=== PATIENT | female | born 1970 | race Two or more races ===

== ENCOUNTER 2017-12-28 14:18 | Emergency (ER) | payer SELFPAY ==
[2017-12-28] MEDS ORDERED: ONDANSETRON HCL INJ/PF 4 MG/2 ML SDV IV ONE (14:57)
[2017-12-28] MEDS ORDERED: FENTANYL CITRATE INJ/PF 100 MCG/2 ML AMPUL IV ONE (14:57)
[2017-12-28] MEDS ORDERED: NORMAL SALINE 1000 ML 1,000 ML IV ONE (14:57)
[2017-12-28] MEDS ORDERED: KETOROLAC TROMETHAMINE INJ/PF 30 MG/1 ML SDV IV ONE (14:57)
--- NOTE | 2017-12-28 15:00 | ER Document Report ---
ED Medical Screen (RME) - General Chief Complaint: Abdominal Pain Stated Complaint: ABDOMINAL PAIN Time Seen by Provider: 12/28/17 14:56 Notes: 47 years old female with a history of pancreatitis, gastric bypass surgery, polyp, presents today with diffuse midline abdominal pain radiating to the back. For the last 2 days. Denies any fever chills. Nauseous no vomiting. Denies any diarrhea. Midline abdominal tenderness noted. TRAVEL OUTSIDE OF THE [place] IN LAST 30 DAYS: No - Related Data Allergies/Adverse Reactions: No Known Allergies Allergy (Unverified 12/28/17 14:23) Past Medical History Renal/ Medical History: Denies: Hx Peritoneal Dialysis Past Surgical History: Reports: Hx Cholecystectomy, Hx Tubal Ligation Physical Exam - Vital signs Vitals: Temp Pulse Resp BP Pulse Ox 98.6 F 94 16 112/65 97 12/28/17 14:43 12/28/17 14:43 12/28/17 14:43 12/28/17 14:43 12/28/17 14:43 Course - Vital Signs Vital signs: Temp Pulse Resp BP Pulse Ox 98.6 F 94 16 112/65 97 12/28/17 14:43 12/28/17 14:43 12/28/17 14:43 12/28/17 14:43 12/28/17 14:43
[2017-12-28 15:42] LABS: ABSOLUTE BASOPHILS # (AUTO) 0.1 10^3/uL (0.0-0.2); ABSOLUTE EOSINOPHILS # (AUTO) 0.1 10^3/uL (0.0-0.6); ABSOLUTE LYMPHOCYTES (AUTO) 1.8 10^3/uL (0.5-4.7); ABSOLUTE MONOCYTES (AUTO) 0.3 10^3/uL (0.1-1.4); ABSOLUTE NEUT (AUTO) 2.7 10^3/uL (1.7-8.2); BASOPHILS % (AUTO) 2.2 % (0-2); EOSINOPHILS % (AUTO) 1.6 % (0-6); HEMATOCRIT 33.1 % (36.0-47.0); HEMOGLOBIN 10.3 g/dL (12.0-15.5); LYMPHOCYTES % (AUTO) 35.7 % (13-45); MEAN CORPUSCULAR HGB CONC 31.2 g/dL (32.0-36.0); MEAN CORPUSCULAR VOLUME 67 fl (80-97); MONOCYTES % (AUTO) 6.4 % (3-13); PLATELET COUNT 417 10^3/uL (150-450); RED BLOOD COUNT 4.91 10^6/uL (3.72-5.28); RED CELL DISTRIBUTION WIDTH 20.8 % (11.5-14.0); SEGMENTED NEUTROPHILS % (AUTO) 54.1 % (42-78); TOTAL CELLS COUNTED % (AUTO) 100 %
[2017-12-28 15:48] LABS: APPEARANCE,URINE SLIGHTLY-CLOUDY; BILIRUBIN,URINE NEGATIVE (NEGATIVE); COLOR,URINE YELLOW; GLUCOSE, URINE NEGATIVE (NEGATIVE); KETONES,URINE TRACE mg/dL (NEGATIVE); LEUKOCYTE ESTERASE,URINE TRACE (NEGATIVE); NITRITE,URINE NEGATIVE (NEGATIVE); PROTEIN,URINE NEGATIVE (NEGATIVE); URINE SPECIFIC GRAVITY 1.025
[2017-12-28 16:02] LABS: ALANINE AMINOTRANSFERASE 24 U/L (9-52); ALBUMIN 4.4 g/dL (3.5-5.0); ALKALINE PHOSPHATASE 91 U/L (38-126); ANION GAP 8 (5-19); ASPARTATE AMINO TRANSFERASE 34 U/L (14-36); BILIRUBIN,DIRECT 0.3 mg/dL (0.0-0.4); BILIRUBIN,TOTAL 0.5 mg/dL (0.2-1.3); BLOOD UREA NITROGEN 10 mg/dL (7-20); CALCIUM 9.5 mg/dL (8.4-10.2); CARBON DIOXIDE 28 mmol/L (22-30); CHLORIDE 107 mmol/L (98-107); GLUCOSE 79 mg/dL (75-110); LIPASE 244.7 U/L (23-300); POTASSIUM 4.6 mmol/L (3.6-5.0); TOTAL PROTEIN 7.8 g/dL (6.3-8.2)
[2017-12-28 16:09] LABS: URINE AMPHETAMINES SCREEN NEGATIVE; URINE BARBITURATES SCREEN NEGATIVE; URINE BENZODIAZEPINES SCREEN NEGATIVE; URINE COCAINE SCREEN NEGATIVE; URINE MARIJUANA (THC) SCREEN NEGATIVE; URINE METHADONE SCREEN NEGATIVE; URINE PHENCYCLIDINE SCREEN NEGATIVE
--- NOTE | 2017-12-28 16:10 | ER Document Report ---
ED General - General Chief Complaint: Abdominal Pain Stated Complaint: ABDOMINAL PAIN Time Seen by Provider: 12/28/17 14:56 TRAVEL OUTSIDE OF THE [place] IN LAST 30 DAYS: No - HPI Notes: Patient is a 47-year-old female with a history of gastric bypass, previous pancreatitis who presents to the ED complaining of epigastric abdominal pain that radiates into her back with associated nausea and vomiting 3 days. Patient states that p.o. intake does increase her symptoms. Patient states that her symptoms do mimic that of pancreatitis in the past. Patient reports having to be in the hospital for 4 days for pancreatitis previously. Her last episode of vomiting was a couple hours ago. No hematemesis. Patient states that she is urinating normally and having normal bowel movements. She has had a cholecystectomy in the past as well. Patient states that she does not drink alcohol anymore since her last bout of pancreatitis. She denies any IV drug use. No other significant past medical history. Denies any drug allergies. Denies any headache, fever, URI, sore throat, chest pain, palpitations, syncope , cough, shortness of breath, wheeze, dyspnea, diarrhea, urinary retention, dysuria, hematuria, loss of control of bowel or bladder, numbness/tingling, saddle anesthesia, muscle paralysis/weakness, or rash. - Related Data Allergies/Adverse Reactions: No Known Allergies Allergy (Unverified 12/28/17 14:23) Past Medical History - Social History Smoking Status: Former Smoker Family History: Reviewed & Not Pertinent Patient has suicidal ideation: No Patient has homicidal ideation: No Renal/ Medical History: Denies: Hx Peritoneal Dialysis Past Surgical History: Reports: Hx Cholecystectomy, Hx Tubal Ligation Review of Systems - Review of Systems -: Yes All other systems reviewed and negative Physical Exam - Vital signs Vitals: Temp Pulse Resp BP Pulse Ox 98.6 F 94 16 112/65 97 12/28/17 14:43 12/28/17 14:43 12/28/17 14:43 12/28/17 14:43 12/28/17 14:43 - Notes Notes: PHYSICAL EXAMINATION: GENERAL: Well-appearing, well-nourished and in no acute distress. A&Ox4. Answers questions appropriately. HEAD: Atraumatic, normocephalic. EYES: Pupils equal round and reactive to light, extraocular movements intact, sclera anicteric, conjunctiva are normal. ENT: Nares patent and without discharge. oropharynx clear without exudates. No tonsilar hypertrophy or erythema. Moist mucous membranes. NECK: Normal range of motion, supple without lymphadenopathy LUNGS: Breath sounds clear to auscultation bilaterally and equal. No wheezes rales or rhonchi. HEART: Regular rate and rhythm without murmurs, rubs, gallops. ABDOMEN: Soft, nondistended abdomen. No guarding, no rebound. + epigastric tenderness, correlates with pain described. Normal bowel sounds present. No CVA tenderness bilaterally. Musculoskeletal: FROM to passive/active. Strength 5+/5. Extremities: No cyanosis, clubbing, or edema b/l. Peripheral pulses 2+. Capillary refill less than 3 seconds. NEUROLOGICAL: Normal speech, normal gait. PSYCH: Normal mood, normal affect. SKIN: Warm, Dry, normal turgor, no rashes or lesions noted. Course - Re-evaluation Re-evalutation: 12/28/17 18:58 Patient is an afebrile, well-hydrated, 47-year-old female who presents to the ED with epigastric abdominal pain. Vitals are acceptable without any significant tachycardia, tachypnea, or hypoxia. PE is otherwise unremarkable aside from reproducible palpable tenderness to the epigastrium. Patient's tenderness to her abdomen has improved. CBC, CMP, lipase, urinalysis, urine drug screen are unremarkable for any acute pathology. CT scan of the abdomen pelvis was unremarkable for any acute pathology as well was ordered at triage. Patient is tolerating p.o. without any difficulties and is nontoxic-appearing. GI cocktail resolved epigastric symptoms. Patient received fluids and IV medication throughout her stay. No other labs or imaging warranted at this time based on H&P. Low suspicion/risk for acute appendicitis, bowel obstruction , acute cholecystitis, acute cholangitis, perforated diverticulitis, incarcerated hernia, pancreatitis, perforated ulcer, peritonitis, sepsis, pelvic inflammatory disease, ectopic , tubo-ovarian abscess, ovarian torsion, or other systemic emergent condition at this time. Patient is aware that her condition can change from initial presentation and she needs to monitor symptoms closely and seek medical attention if any acute changes. I will send her home with a prescription for Carafate, Zofran, and omeprazole. Conservative measures otherwise for symptoms. Recheck with your PCM in 2-3 days. Schedule an appointment with a hydrostatic tubing tester. Return to the ED with any worsening/concerning symptoms otherwise as reviewed in discharge. Patient is in agreement. - Vital Signs Vital signs: Temp Pulse Resp BP Pulse Ox 98.6 F 94 16 112/65 97 12/28/17 14:43 12/28/17 14:43 12/28/17 14:43 12/28/17 14:43 12/28/17 14:43 - Laboratory Result Diagrams: 12/28/17 15:30 12/28/17 15:30 Laboratory results interpreted by me: 12/28/17 12/28/17 12/28/17 15:30 15:30 15:30 Hgb 10.3 L Hct 33.1 L MCV 67 L MCH 21.0 L MCHC 31.2 L RDW 20.8 H Basophils % 2.2 H Creatinine 0.51 L Urine Ketones TRACE H Urine Urobilinogen 4.0 H Ur Leukocyte Esterase TRACE H Urine Ascorbic Acid 20 H Discharge - Discharge Clinical Impression: Epigastric abdominal pain Condition: Stable Disposition: HOME, SELF-CARE Instructions: Abdominal Pain ([facility]), Antinausea Medication ([facility]) Additional Instructions: Maintain adequate fluid and food intake [place] diet ([employer] Bananas, rice, apples, toast, etc Zofran as needed tylenol if needed Monitor for any worsening symptoms Make sure you are staying hydrated enough to urinate and have normal BM's Recheck with your PCM in 2-3 days Schedule an appointment with gastroenterology for further evaluation and management Return to the ED with any worsening symptoms and/or development of fever, headache, chest pain, palpitations, syncope, shortness of breath, trouble breathing, abdominal pain, n/v/d, blood in stool/urine, weakness, or other worsening symptoms that are concerning to you. Prescriptions: Omeprazole 20 mg PO DAILY #30 tablet. Ondansetron [Zofran Odt 4 mg Tablet] 1 - 2 tab PO Q4H PRN #15 tab.rapdis PRN Reason: For Nausea/Vomiting Sucralfate [Carafate] 1 gm PO QID PRN #420 ml PRN Reason: Referrals: [facility] [Provider Group] - Follow up as needed
[2017-12-28] MEDS ORDERED: METOCLOPRAMIDE HCL ORAL SOLN 10 MG/10 ML UDCUP PO ONE (18:18)
[2017-12-28] MEDS ORDERED: LIDOCAINE 2% VISCOUS SOLN 20 ML UDCUP PO ONE (18:18)
[2017-12-28] MEDS ORDERED: MAG HYDROX/AL HYDROX/SIMETH SUSP 30 ML UDCUP PO ONE (18:18)
--- NOTE | 2017-12-28 18:30 | RADIOLOGY REPORT (SQ) ---
EXAM DESCRIPTION: CT ABD/PELVIS WITH IV ONLY COMPLETED DATE/TIME: 12/28/2017 6:06 pm REASON FOR STUDY: Pancreatitis COMPARISON: None. TECHNIQUE: CT scan of the abdomen and pelvis performed using helical scanning technique with dynamic intravenous contrast injection. No oral contrast. Images reviewed with lung, soft tissue, and bone windows. Reconstructed coronal and sagittal MPR images reviewed. Delayed images for evaluation of the urinary system also acquired. All images stored on PACS. All CT scanners at this facility use dose modulation, iterative reconstruction, and/or weight based d osing when appropriate to reduce radiation dose to as low as reasonably achievable (ALARA). [facility]: Dose Right [facility]: CareDose [facility]: Dose Right [facility]: Teradose 4D [facility]: Cardiosolutions CONTRAST TYPE AND DOSE: contrast/concentration: Isovue 350.00 mg/ml; Total Contrast Delivered: 92.0 ml; Total Saline Delivered: 45.0 ml RENAL FUNCTION: BUN 10 creatinine 0.5 RADIATION DOSE: CT Rad equipment meets quality standard of care and radiation dose reduction techniq ues were employed. CTDIvol: 16.2 - 19.0 mGy. DLP: 3137 mGy-cm.. LIMITATIONS: None. FINDINGS: LOWER CHEST: No significant findings. No nodules or infiltrates. LIVER: Normal size. No masses. No dilated ducts. SPLEEN: Normal size. No focal lesions. PANCREAS: No masses. No significant calcifications. No adjacent inflammation or peripancreatic fluid collections. Pancreatic duct not dilated. GALLBLADDER: Surgically absent. ADRENAL GLANDS: No significant masses or asymmetry. RIGHT KIDNEY AND URETER: No solid masses. No significant calcifications. No hydronephrosis or hyd roureter. LEFT KIDNEY AND URETER: No solid masses. No significant calcifications. No hydronephrosis or hydr oureter. AORTA AND VESSELS: No aneurysm. No dissection. Renal arteries, SMA, celiac without stenosis. RETROPERITONEUM: No retroperitoneal adenopathy, hemorrhage or masses. BOWEL AND PERITONEAL CAVITY: No masses or inflammatory changes. No free fluid or peritoneal masses. APPENDIX: Normal. PELVIS: No mass. No free fluid. Normal bladder. ABDOMINAL WALL: No masses. No hernias. BONES: Unilateral spondylolysis on the left at L4. OTHER: No other significant finding. IMPRESSION: 1. No acute findings in the abdomen or pelvis. There is no evidence of acute pancreatit is. 2. Unilateral spondylolysis at L4 on the left. TECHNICAL DOCUMENTATION: JOB ID: [id number] Quality ID # [id number]: Final reports with documentation of one or more dose reduction techniques (e.g., Au tomated exposure control, adjustment of the mA and/or kV according to patient size, use of iterative reconstruction technique) 2010 [employer] All Rights Reserved Reading location - IP/workstation name: [email or web address]
[2017-12-28 19:03] VITALS: BP 117/71
== END 2017-12-28 19:07 | disposition home or self-care (01) ==
LOC: ER 14:18
DX: R10.13 Epigastric pain (principal); R11.2 Nausea with vomiting, unspecified; Z98.84 Bariatric surgery status; Z90.49 Acquired absence of other specified parts of digestive tract; Z87.891 Personal history of nicotine dependence
CPT/HCPCS: 99284; 96361; 96374; 96375; 36415; 83690; 85025; 81025; 80053; 81001; 80307; 74177; J3010; J3490; J1885; J2405; J7030

== ENCOUNTER 2018-06-11 21:27 | Emergency (ER) | payer OTHER ==
[2018-06-11] MEDS ORDERED: MORPHINE SULFATE 10 MG/ML INJ IV ONE (22:03)
[2018-06-11] MEDS ORDERED: NORMAL SALINE 1000 ML 1,000 ML IV ONE (22:03)
[2018-06-11] MEDS ORDERED: ONDANSETRON HCL INJ/PF 4 MG/2 ML SDV IV ONE (22:03)
--- NOTE | 2018-06-11 22:06 | ER Document Report ---
ED Medical Screen (RME) - General Chief Complaint: Abdominal Pain Stated Complaint: HEADACHE Time Seen by Provider: 06/11/18 22:03 Notes: 48-year-old female with a history of both pancreatitis and gastric bypass comes to the emergency department for chief complaint of upper abdominal pain, worse on the left, radiates around to her back. Symptoms started 3 days ago, have worsened, she vomited 3 times a day, she also has developed a headache as well. Denies fever. Denies alcohol, states she used to with previous pancreatitis. Has had a cholecystectomy. TRAVEL OUTSIDE OF THE [place] IN LAST 30 DAYS: No - Related Data Allergies/Adverse Reactions: No Known Allergies Allergy (Unverified 12/28/17 14:23) Past Medical History Renal/ Medical History: Denies: Hx Peritoneal Dialysis Past Surgical History: Reports: Hx Cholecystectomy, Hx Tubal Ligation Physical Exam - Vital signs Vitals: Temp Pulse Resp BP Pulse Ox 98.1 F 90 17 128/85 H 100 06/11/18 22:02 06/11/18 22:02 06/11/18 22:02 06/11/18 22:02 06/11/18 22:02 - General General appearance: Anxious In distress: Mild - Appears to be in pain but not in severe distress - Abdominal Tenderness: Tender - Tender in the epigastric and general upper abdomen especially on the left Course - Re-evaluation Re-evalutation: I have greeted and performed a rapid initial assessment of this patient. A comprehensive ED assessment and evaluation of the patient, analysis of test results and completion of the medical decision making process will be conducted by additional ED providers. - Vital Signs Vital signs: Temp Pulse Resp BP Pulse Ox 98.1 F 90 17 128/85 H 100 06/11/18 22:02 06/11/18 22:02 06/11/18 22:02 06/11/18 22:02 06/11/18 22:02
[2018-06-11 23:00] LABS: ABSOLUTE BASOPHILS # (AUTO) 0.1 10^3/uL (0.0-0.2); ABSOLUTE EOSINOPHILS # (AUTO) 0.1 10^3/uL (0.0-0.6); ABSOLUTE LYMPHOCYTES (AUTO) 1.6 10^3/uL (0.5-4.7); ABSOLUTE MONOCYTES (AUTO) 0.4 10^3/uL (0.1-1.4); ABSOLUTE NEUT (AUTO) 2.4 10^3/uL (1.7-8.2); BASOPHILS % (AUTO) 1.2 % (0-2); EOSINOPHILS % (AUTO) 2.7 % (0-6); HEMATOCRIT 32.6 % (36.0-47.0); HEMOGLOBIN 10.2 g/dL (12.0-15.5); LYMPHOCYTES % (AUTO) 35.8 % (13-45); MEAN CORPUSCULAR HEMOGLOBIN 22.1 pg (27.0-33.4); MEAN CORPUSCULAR HGB CONC 31.4 g/dL (32.0-36.0); MEAN CORPUSCULAR VOLUME 70 fl (80-97); MONOCYTES % (AUTO) 7.8 % (3-13); PLATELET COUNT 444 10^3/uL (150-450); RED BLOOD COUNT 4.64 10^6/uL (3.72-5.28); RED CELL DISTRIBUTION WIDTH 19.6 % (11.5-14.0); SEGMENTED NEUTROPHILS % (AUTO) 52.5 % (42-78); TOTAL CELLS COUNTED % (AUTO) 100 %; WHITE BLOOD COUNT 4.6 10^3/uL (4.0-10.5)
[2018-06-11 23:14] LABS: APPEARANCE,URINE CLEAR; BILIRUBIN,URINE NEGATIVE (NEGATIVE); COLOR,URINE YELLOW; GLUCOSE, URINE NEGATIVE (NEGATIVE); KETONES,URINE TRACE mg/dL (NEGATIVE); LEUKOCYTE ESTERASE,URINE NEGATIVE (NEGATIVE); NITRITE,URINE NEGATIVE (NEGATIVE); PROTEIN,URINE NEGATIVE (NEGATIVE); URINE SPECIFIC GRAVITY 1.026
[2018-06-11 23:20] LABS: ALANINE AMINOTRANSFERASE 28 U/L (9-52); ALBUMIN 4.2 g/dL (3.5-5.0); ALKALINE PHOSPHATASE 109 U/L (38-126); ANION GAP 6 (5-19); ASPARTATE AMINO TRANSFERASE 21 U/L (14-36); BILIRUBIN,DIRECT 0.1 mg/dL (0.0-0.4); BILIRUBIN,TOTAL 0.3 mg/dL (0.2-1.3); BLOOD UREA NITROGEN 17 mg/dL (7-20); CALCIUM 9.7 mg/dL (8.4-10.2); CARBON DIOXIDE 29 mmol/L (22-30); CHLORIDE 106 mmol/L (98-107); GLUCOSE 99 mg/dL (75-110); LIPASE 254.9 U/L (23-300); POTASSIUM 4.9 mmol/L (3.6-5.0); SODIUM 141.3 mmol/L (137-145); TOTAL PROTEIN 6.9 g/dL (6.3-8.2)
[2018-06-11] MEDS ORDERED: HYDROMORPHONE HCL INJ/PF 2 MG/ML AMPULE IV ONE (23:44)
--- NOTE | 2018-06-12 00:24 | RADIOLOGY REPORT (SQ) ---
EXAM DESCRIPTION: XR ABDOMEN SUPINE AND ERECT WITH CHEST (ABD ACUTE SERIES) COMPLETED DATE/TME: 06/11/2018 23:44 CLINICAL HISTORY: 48 years Female, mid/upper abd pain, hx gastric bypass Comparison: None. NUMBER OF VIEWS/TECHNIQUE: 3 LIMITATIONS: None. FINDINGS: Intestinal gas pattern is within normal limits. No suspicious calcification. Grossly intact skeletal structures. No acute cardiopulmonary findings.Upper abdominal clips. Degenerative disc disease. IMPRESSION: No acute findings.
--- NOTE | 2018-06-12 02:40 | RADIOLOGY REPORT (SQ) ---
CLINICAL HISTORY: abdominal pain (mid to left and back) HCG NEG COMPARISON: None. TECHNIQUE: CT ABDOMEN PELVIS WITH IV CONTRAST on 06/12/2018 12:00 AM SPECIAL EDUCATION ASSISTANT This exam was performed according to our departmental dose-optimization program, which includes automated exposure control, adjustment of the mA and/or kV according to patient size and/or use of iterative reconstruction technique. FINDINGS: Lower lungs are clear. Abdomen: The liver is normal in appearance. There is no biliary dilatation. Cholecystectomy was performed. There are postoperative changes of the upper stomach. The pancreas and spleen are normal in appearance. The adrenal glands and kidneys are unremarkable. Abdominal aorta is normal in course and caliber without aneurysm. There is no free air. There is no retroperitoneal adenopathy. Pelvis: There is moderate amount of stool throughout the colon. Urinary bladder is unremarkable. There is trace free pelvic fluid. Uterus is normal in size. Appendix is normal. Skeleton: There are no acute osseous findings. No suspicious bony lesions. IMPRESSION: No acute inflammatory process. No renal or ureteral calculi.
[2018-06-12] MEDS ORDERED: FAMOTIDINE 20 MG TABLET PO ONE (02:49)
[2018-06-12] MEDS ORDERED: PROMETHAZINE HCL 25 MG TABLET PO ONE (02:49)
[2018-06-12] MEDS ORDERED: SUCRALFATE 1 GM TABLET PO ONE (02:49)
[2018-06-12] MEDS ORDERED: HYDROCODONE/ACETAMINOPHEN 5-325 MG (6 TAB/ER DISP) PO PRN (02:58)
[2018-06-12 03:09] VITALS: BP 118/75
--- NOTE | 2018-06-12 03:09 | ER Document Report ---
ED GI/ - General Chief Complaint: Abdominal Pain Stated Complaint: HEADACHE Time Seen by Provider: 06/11/18 22:03 Notes: Patient is a 48-year-old female with a history of both pancreatitis and gastric bypass comes to the emergency department for chief complaint of mid to upper abdominal pain, worse on the left, radiates around to her back. Symptoms started 3 days ago, have worsened, she vomited 3 times a day, she also has developed a headache as well. Denies fever. Denies alcohol, states she used to with previous pancreatitis. Has had a cholecystectomy. She has tried taking Tylenol and ibuprofen for the pain without any improvement. TRAVEL OUTSIDE OF THE [place] IN LAST 30 DAYS: No - Related Data Allergies/Adverse Reactions: No Known Allergies Allergy (Unverified 12/28/17 14:23) Past Medical History - General Information source: Patient - Social History Smoking Status: Current Some Day Smoker Smoking Education Provided: Yes - <3 min Frequency of alcohol use: None Drug Abuse: None Lives with: Family Family History: Reviewed & Not Pertinent Patient has suicidal ideation: No Patient has homicidal ideation: No Renal/ Medical History: Denies: Hx Peritoneal Dialysis Past Surgical History: Reports: Hx Abdominal Surgery - gastric bypass, Hx Cholecystectomy, Hx Tubal Ligation Review of Systems - Review of Systems Constitutional: No symptoms reported EENT: No symptoms reported Cardiovascular: No symptoms reported Respiratory: No symptoms reported Gastrointestinal: No symptoms reported Genitourinary: No symptoms reported Female Genitourinary: No symptoms reported Musculoskeletal: No symptoms reported Skin: No symptoms reported Hematologic/Lymphatic: No symptoms reported Neurological/Psychological: No symptoms reported Physical Exam - Vital signs Vitals: Temp Pulse Resp BP Pulse Ox 98.1 F 90 17 128/85 H 100 06/11/18 22:02 06/11/18 22:02 06/11/18 22:02 06/11/18 22:02 06/11/18 22:02 - Notes Notes: GENERAL: Alert, interacts well. Appears to be in pain, intermittently holding her abdomen. HEAD: Normocephalic, atraumatic. EYES: Pupils equal, round, and reactive to light. Extraocular movements intact. ENT: Oral mucosa moist, tongue midline. Oropharynx unremarkable. Airway patent. Nares patent, no nasal septal hematoma, TM's intact. NECK: Full range of motion. Supple. Trachea midline. LUNGS: Clear to auscultation bilaterally, no wheezes, rales, or rhonchi. No res piratory distress. HEART: Regular rate and rhythm. No murmur ABDOMEN: Tenderness in the mid upper abdomen and especially over the left upper quadrant. Patient complains with palpation of these areas. Remaining abdomen is soft and unremarkable. Bowel sounds present. GENITOURINARY: Deferred EXTREMITIES: Moves all 4 extremities spontaneously. No edema, normal radial and dorsalis pedis pulses bilaterally. No cyanosis. BACK: no cervical, thoracic, lumbar midline tenderness. No saddle anesthesia, n ormal distal neurovascular exam. NEUROLOGICAL: Alert and oriented x3. Normal speech. [cranial nerves II through XII grossly intact]. PSYCH: Normal affect, normal mood. SKIN: Warm, dry, normal turgor. No rashes or lesions noted. Course - Re-evaluation Re-evalutation: After initial medications patient was reevaluated, still complains of a lot of pain. CBC, chemistry, lipase unremarkable. Urine unremarkable. Acute abdominal series does not show free air or any concerning abnormality. Patient's abdomen was reexamined, she still has a lot of tenderness. I discussed different options. Because of her surgical history, continued and worsening pain, and vomiting today decision was made to proceed with CAT scan. CAT scan was performed but this does not show any acute abnormality. There is moderate stool. I strongly suspect patient's problem is her gastric bypass, use of intermittent ibuprofen, and daily coffee which she admits to after I discussed this with her again. She also has some intermittent smoking. Denies alcohol. Patient was given Carafate, Pepcid, Phenergan. She tolerated this without difficulty. I discussed the workup, medications, close to gastroneurology follow-up, and strict return precautions. She states she does have an EGD scheduled and a gastroenterology follow-up arranged. Patient states understanding and agreement with plan. - Vital Signs Vital signs: Temp Pulse Resp BP Pulse Ox 98.8 F 73 16 118/75 97 06/12/18 03:04 06/12/18 03:04 06/12/18 03:04 06/12/18 03:04 06/12/18 03:04 - Laboratory Result Diagrams: 06/11/18 22:31 06/11/18 22:31 Laboratory results interpreted by me: 06/11/18 06/11/18 22:31 22:31 Hgb 10.2 L Hct 32.6 L MCV 70 L MCH 22.1 L MCHC 31.4 L RDW 19.6 H Urine Ketones TRACE H Urine Urobilinogen 2.0 H Discharge - Discharge Clinical Impression: Upper abdominal pain Vomiting Qualifiers: Vomiting type: unspecified Vomiting Intractability: non-intractable Nausea presence: with nausea Qualified Code(s): R11.2 - Nausea with vomiting, unspecified Condition: Stable Disposition: HOME, SELF-CARE Additional Instructions: Your symptoms and examination indicate gastritis/esophagitis (inflammation of your upper gastrointestinal tract). Take Phenergan for nausea, take Carafate and Pepcid as prescribed to help treat this, you can take additional Rolaids, Tums, Maalox, etc. if needed. You can take Tylenol for pain. Avoid NSAIDs, alcohol, smoking, caffeine, spicy food. Start with clear fluids, progress to bland diet. Follow-up with primary care for additional evaluation and treatment including possible H. pylori testing. Return if you worsen including uncontrolled vomiting, vomiting blood, black stools, severe pain, fever for 100.4 or greater, or any other concerning or worsening symptoms. Prescriptions: Famotidine [Pepcid 20 mg Tablet] 20 mg PO BID #20 tablet Promethazine HCl [Phenergan 25 mg Tablet] 25 mg PO Q6H PRN #20 tablet PRN Reason: Sucralfate [Carafate 1 gm Tablet] 1 gm PO QID #20 tablet Forms: Return to Work
== END 2018-06-12 03:13 | disposition home or self-care (01) ==
LOC: ER 21:27
DX: R10.10 Upper abdominal pain, unspecified (principal); R11.2 Nausea with vomiting, unspecified; R10.9 Unspecified abdominal pain; R51 Headache; R10.12 Left upper quadrant pain; M54.9 Dorsalgia, unspecified; F17.200 Nicotine dependence, unspecified, uncomplicated
CPT/HCPCS: 99284; 96361; 96374; 96375; 36415; 83690; 84703; 85025; 80053; 81001; 74022; 74177; J2270; J1170; J2405; J7030

== ENCOUNTER 2018-06-13 19:41 | Emergency (ER) | payer OTHER | END 2018-06-13 19:44 | disposition left against medical advice (07) | LOC: ER 19:41 | DX: Z53.21 Procedure and treatment not carried out due to patient leaving prior to being seen by health care provider (principal); M79.645 Pain in left finger(s) ==

== ENCOUNTER 2018-06-14 07:07 | Emergency (ER) | payer OTHER ==
[2018-06-14 07:21] VITALS: BP 116/78
[2018-06-14] MEDS ORDERED: LIDOCAINE 1% INJ-PF (10 MG/ML) 30 ML SDV INJ ONE (07:42)
--- NOTE | 2018-06-14 07:49 | ER Document Report ---
HPI - HPI Time Seen by Provider: 06/14/18 07:37 Pain Level: 4 Notes: Patient is a 48-year-old female with no significant past medical history who presents the emergency department complaining of pain and swelling around the nail of her fourth left digit of the hand. Pain does not radiate. Patient believes that she has a finger infection. She has not noticed any purulent discharge or streaking. Denies drug allergies. No history of IV drug abuse or MRSA. Denies any URI, sore throat, chest pain, palpitations, syncope, cough, shortness of breath, wheeze, dyspnea, abdominal pain, nausea/vomiting/diarrhea, urinary retention, dysuria, hematuria, loss of control of bowel or bladder, numbness/tingling, muscle paralysis/weakness, or rash. - ROS Systems Reviewed and Negative: Yes All other systems reviewed and negative - REPRODUCTIVE Reproductive: DENIES: : Past Medical History - Social History Smoking Status: Unknown if Ever Smoked Family History: Reviewed & Not Pertinent Renal/ Medical History: Denies: Hx Peritoneal Dialysis Past Surgical History: Reports: Hx Abdominal Surgery - gastric bypass, Hx Cholecystectomy, Hx Tubal Ligation Vertical Provider Document - CONSTITUTIONAL Agree With Documented VS: Yes Notes: PHYSICAL EXAMINATION: GENERAL: Well-appearing, well-nourished and in no acute distress. LUNGS: Breath sounds clear to auscultation bilaterally and equal. No wheezes rales or rhonchi. HEART: Regular rate and rhythm without murmurs, rubs, gallops Musculoskeletal: Left 4th digit: FROM to passive/active. Strength 5+/5. N/v intact distal. Extremities: No cyanosis, clubbing, or edema b/l. Peripheral pulses 2+. Capillary refill less than 3 seconds. NEUROLOGICAL: Normal speech, normal gait. Normal sensory, motor exams PSYCH: Normal mood, normal affect. SKIN: + paronychia to the 4th digit lateral nail side. No felon. + associated tenderness and mild fluctuance. - INFECTION CONTROL TRAVEL OUTSIDE OF THE [place] IN LAST 30 DAYS: No Course - Re-evaluation Re-evalutation: 06/14/18 08:00 Patient is an afebrile, well-hydrated, 48-year-old female who presents to the emergency department with a paronychia 4th left finger needing incision and drainage. Vitals are acceptable without significant tachycardia, tachypnea, or hypoxia. PE is otherwise unremarkable. Patient is nontoxic-appearing and is tolerating p.o. without difficulty. Incision and drainage was performed without any complications. Wound dressing was placed and wound instructions reviewed. Wound culture was obtained. No further labs or imaging warranted. Low suspicion for any sepsis, meningitis, SJS, nec fasc, felon, or other systemic emergent condition at this time. Patient to monitor symptoms for any acute changes and seek medical attention if so. Rx for keflex. Recheck with your PCM in 2-3 days. Return to the ED with any worsening/concerning symptoms as reviewed. Patient is in agreement. - Vital Signs Vital signs: Temp Pulse Resp BP Pulse Ox 98.1 F 79 18 116/78 98 06/14/18 07:19 06/14/18 07:19 06/14/18 07:19 06/14/18 07:19 06/14/18 07:19 Procedures - Incision and Drainage Left Finger 4th digit Time completed: 07:55 - Patient tolerated procedure well without any complications Anesthetic type: 1% Lidocaine mL's of anesthetic: 6 - digital block Blade size: 11 I&D procedure: Chlorprep applied, Sterile dressing applied Incision Method: Incision made by scalpel Amount/type of drainage: moderate purulent Discharge - Discharge Clinical Impression: Paronychia of finger of left hand Condition: Stable Disposition: HOME, SELF-CARE Instructions: Paronychia (OM) Additional Instructions: keep the skin clean Epsom salt soaks Wash with soap and water Tylenol/ibuprofen if needed Triple antibiotic ointment daily Take medication as directed Monitor for any worsening symptoms Recheck with your PCM in 2-3 days Return to the ED with any worsening symptoms and/or development of fever, headache, chest pain, palpitations, syncope, shortness of breath, trouble breathing, abdominal pain, n/v/d, abscess, purulent discharge, red streaks, worsening swelling, or other worsening symptoms that are concerning to you. Prescriptions: Cephalexin Monohydrate [Keflex 500 mg Capsule] 500 mg PO TID #30 capsule Referrals: [facility] [Provider Group] - Follow up as needed
== END 2018-06-14 08:31 | disposition home or self-care (01) ==
LOC: ER 07:07
DX: L03.012 Cellulitis of left finger (principal)
CPT/HCPCS: 99283; 87070; 87205; 87077; 87186; 10060; J3490